=== PATIENT | male | born 1970 | race Caucasian/White ===

== ENCOUNTER 2020-06-14 21:21 | Emergency (ER) | payer BC, OTHER ==
[~2020-06-14] VITALS: Ht 193 cm; Wt 108.9 kg
[2020-06-14 21:34] VITALS: BP_SYST 171
[2020-06-14] MEDS ORDERED: MORPHINE 4 MG/ML INJ. SYRINGE IVP ONE (21:45)
[2020-06-14] MEDS ORDERED: HYDR-4272 PO (21:55)
[2020-06-14 22:55] VITALS: BP_SYST 162
== END 2020-06-14 22:55 | disposition home or self-care (01) ==
LOC: SED 21:21
DX: R07.89 Other chest pain (principal)
CPT/HCPCS: 96374; 99283; J2270